=== PATIENT | female | born 1935 | race Caucasian/White ===

== ENCOUNTER 2018-04-05 22:51 | Emergency (ER) | payer MEDICARE ==
[~2018-04-05] VITALS: Ht 170.2 cm; Wt 50.0 kg
[2018-04-06 00:42] VITALS: BP 122/80
== END 2018-04-06 00:44 | disposition home or self-care (01) ==
LOC: EMS 22:54
DX: J44.9 Chronic obstructive pulmonary disease, unspecified (principal); F17.210 Nicotine dependence, cigarettes, uncomplicated; Z99.81 Dependence on supplemental oxygen